=== PATIENT | female | born 1980 | race Caucasian/White ===

== ENCOUNTER 2020-09-20 14:33 | Emergency (ER) | payer OTHER ==
[~2020-09-20] VITALS: Ht 167.6 cm; Wt 108.9 kg
[2020-09-20] MEDS ORDERED: GEODON40 MG PO (15:25)
[2020-09-20] MEDS ORDERED: OLANZAPINE15 MG PO (15:25)
[2020-09-21] MEDS ORDERED: GEODON40 MG PO (16:34)
[2020-09-21] MEDS ORDERED: BACTRIM DS TAB1 EACH PO (16:34)
[2020-09-21] MEDS ORDERED: OLANZAPINE15 MG PO (16:34)
== END 2020-09-21 17:35 | disposition home or self-care (01) ==
LOC: ED 14:33
DX: F29 Unspecified psychosis not due to a substance or known physiological condition (principal); F15.10 Other stimulant abuse, uncomplicated; F25.9 Schizoaffective disorder, unspecified; Z79.899 Other long term (current) drug therapy
CPT/HCPCS: 80053; 80176; 81001; 84443; 84703; 85025; 87077; 87088; 87186; 99284

== ENCOUNTER 2021-08-04 07:59 | Inpatient (IN) | payer OTHER ==
[~2021-08-04] VITALS: Ht 167.6 cm; Wt 101.9 kg
--- NOTE | ~2021-08-04 | EKG ---
[facility] [address], [place] [address] Draft EK completed, results pending confirmation PATIENT NAME: VASQUEZ MONTERO Electrocardiogram DATE OF : 78 PHYSICIAN: PRELIMINARY REPORT #: [id number] REPORT IS CONFIDENTIAL AND NOT TO BE RELEASED WITHOUT AUTHORIZATION
[~2021-08-04 07:59] MED LIST: BACTRIM DS TAB1 EACH PO; GEODON40 MG PO; OLANZAPINE15 MG PO
--- OUTSIDE RECORDS SUMMARY | 2021-08-04 08:02 | XMS ---
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 Kermit has no Care Guidelines for this patient. Js VISIT COUNT (12 MO.) 3 [place] TOTAL 3 NOTE: Visits indicate total known visits. ED/C VISIT TRACKING (12 MO.) 08/04/2021 07:59 [place] TYPE: Emergency COMPLAINT: - HYPOTHERMIA 01/22/2021 10:36 [place] TYPE: Emergency COMPLAINT: - RASH ON R ARM/HAND 2020 14:34 [place] TYPE: Emergency COMPLAINT: - MEDICAL CLEARANCE DIAGNOSES: - Other prison (current) drug therapy - Schizoaffective disorder, unspecified - Delusional disorders - Unspecified psychosis not due to a substance or known physiological condition - Other stimulant abuse, uncomplicated INPATIENT VISIT TRACKING (12 MO.) No inpatient visits to display in this time frame [email or web address]
--- NOTE | 2021-08-04 12:40 | NUR ---
BEDSIDE REPORT RECIEVED FROM RN MALIKA IN THE ED. PT TRANSPORTED TO CCU VIA STRETCHER ON GANG LEADER BY THIS RN. PT TRANSFERED FROM STRETCHER TO BED WITH THREE RN ASSIST.
--- NOTE | 2021-08-04 13:04 | NUR ---
ASSESSMENT COMPLETE. PT ALERT AND ORIENTED TO YEAR, LOCATION, AND SITUATION. STATES SHE DOES NOT REMEMBER BEING PICKED UP BY EMS. STATES SHE WAS ON A WALK AND "THE WIND TURBINES WHERE STOPPING HER AND PULLING AT HER CALFS. SO SHE COULDNT WALK ANYMORE." PT REPORTS REGULAR USE OF METH AND IS A DAILY SMOKER. LUNGS SOUND CLEAR AND DIM IN THE BASES. HEART RATE IN THE 70S IN SINUS RHYTHM. BLOOD PRESSURES WNL. CORE TMEP 0F 94.5 AT THIS TIME. PT CONTINUES TO SHIVER. COVERED IN WARM BLANKETS AT THIS TIME. WARMED LR INFUSING AT 75 MLS/HR. DISCUSSED PLAN OF CARE WITH PT. ALL QUESTIONS ANSWERED. PT GIVEN 300 MLS OF WATER, NO ISSUES WITH SWALLOWING NOTED. WRIST RESTRAINTS REMOVED. CALL LIGHT WITHIN REACH. THIS RN WILL CONTINUE TO MONITOR.
--- NOTE | 2021-08-04 13:55 | EKG ---
[facility] [address] [place], [place] [address] \T\ T wave abnormality, consider inferior ischemia Prolonged QT Abnormal ECG When compared with ECG of 04-AUG-2021 10:08, Confirmed by ANGELA STRIKCLAND DO ([id number]) on 08/04/2021 1:55:38 PM Electronically Signed By: ANGELA STRICKLAND DO 08/04/21 1355 PATIENT NAME: ADRIANNAGEOFFREYVASQUEZ Electrocardiogram DATE OF : 78 PHYSICIAN: ANGELA STRICKLAND DO REPORT #: [id number] REPORT IS CONFIDENTIAL AND NOT TO BE RELEASED WITHOUT AUTHORIZATION
--- NOTE | 2021-08-04 14:37 | NUR ---
PT DRINKING WATER AND EATING A SNAK. HEART RATE IN THE 80S. CORE TEMP NOW 96.0. COLOR IN EXTREMETIES IMPROVED. PT DENIES PAIN. [facility] WILL CONTINUE TO MONITOR.
--- NOTE | 2021-08-04 15:48 | NUR ---
ASSESSMENT COMPLETED. PT REMAINS ALERT AND ORIENTED, BUT IS HALLUCINATING. TALKING TO UNSEEN OTHERS IN THE ROOM. PT STATES SHE IS LIVES AT HOME WITH FAMILY. PT STATES, "THEY ARE ALL IN DANGER. I FIGHT THE DEMONS FOR THEIR SOULS EVERY NIGHT" BRUISING IS APPEARING ON NUCKLES, BILATERAL ARMS AND KNEES. SKIN NOW PINK. PT NO LONGER SHIVERING. CORE TEMP NOW 96.8. PT COMPLAINS OF GENERALIZED ACHING. ASSISTED PT WITH REPOSITIONING IN THE BED. CALL LIGHT WTHIN REACH. WILL CONTINUE TO MONITOR.
--- NOTE | 2021-08-04 16:18 | NUR ---
PT UP TO BSC. ONE PERSON ASSIST REQUIRED. DENIES DIZZINESS. PT HAD LARGE LIQUID STOOL. ASSISTED PT WITH PERICARE. PT NOW BACK IN BED. CALL LIGHT WITHIN REACH. WILL CONTINUE TO MONITOR.
--- NOTE | 2021-08-04 17:44 | NUR ---
PT ate 100 percent of dinner, now asleep. respirations even and unlabored. spo2 = 92% on room air. Occasionally wakes and begins speaking to unseen others. call light within reach, will continue to monitor
--- NOTE | 2021-08-04 20:00 | NUR ---
PATIENT REQUESTED SNACKS AND SODA. REPORTS HER THROAT IS SORE. SANDWICH BOX, YOGURT, APPLE SAUCE, AND SODA PROVIDED. PATIENT ATE 100% OF PROVIDED FOOD. DENIES ANY CONCERNS. APPEARS APPROPRIATE.
--- NOTE | 2021-08-04 20:35 | NUR ---
provided patient a sandwich box and yogurt. pt sitting up on edge of bed with table to eat at.
--- NOTE | 2021-08-04 21:03 | NUR ---
PATIENT PROVIDED WITH PM MEDS. VS STABLE. AZUL EMPTIED, 900MLS CLEAR YELLOW URINE. PATIENT IS APPROPRIATE, DROWSY. PATIENT PROVIDED WITH WARM BLANKET, LIGHTS DIMMED. IV FLUIDS PER ORDER, SITE WNL. CALL LIGHT IN REACH. PATIENT SNORING LOUDLY BEFORE RN LEAVES ROOM. BED ALARM ACTIVE.
--- NOTE | 2021-08-04 22:45 | NUR ---
patient provided with fresh ice water. she denies any concerns. sleeping osundly off and on. drowsy. vs stable. temp wnl. appears calm and appropriate.
--- NOTE | 2021-08-05 00:20 | NUR ---
PATIENT SITTING UP TO THE EDGE OF THE BED. PROVIDED WITH SOME WATER. PATIENT REPORTS HER TOUNGE IS SORE FROM "CLAMPING DOWN ON IT" WHEN SHE WAS SO COLD. PROVIDED WITH PRN TYLENOL. PATIENT ATE SOME MORE SNACKS AND STOOD AT THE EDGE OF THE BED FOR A MIN. APPEARS TIRED BUT CALM. VS STABLE. IV FLUIDS PER ORDER. PATIENT RETURNED TO BED AND QUICKLY FELL ASLEEP, SNORING LOUDLY.
--- NOTE | 2021-08-05 03:00 | NUR ---
patient appears to be sleeping soundly, snoring loudly. hr 60-70's, sinus. vega temp wnl. call light in reach.
--- NOTE | 2021-08-05 05:30 | NUR ---
PATIENT SLEEPING SOUNDLY, SNORING. AZUL EMPTIED. PATIENT WOKE WHILE RN IN ROOM. QUESTIONS IF SHE CAN HAVE A SHOWER TO WASH HER HAIR. OFFERED THE PATIENT TO WAKE UP A BIT AND I WOULD SET UP THE SHOWER THE PATIENT STATES "OKAY, MAYBE AFTER BREAKFAST" AND QUICKLY STARTS TO FALL ASLEEP. VS STABLE. CALL LIGHT IN REACH.
--- NOTE | 2021-08-05 07:23 | NUR ---
REPORT RECIEVED, CARE OF PT ASSUMED AT THIS TIME.
--- NOTE | 2021-08-05 07:28 | NUR ---
IN TO CHECK ON PT, SHE APPEARS TO BE SLEEPING. BREATHING EVEN AND UNLABORED. IV FLUIDS INFUSING. CALL LIGHT WITHIN REACH. WILL CONTINUE TO MONITOR.
--- NOTE | 2021-08-05 07:51 | NUR ---
ASSESSMENT COMPLETED. JORGE ALBERTO YOUNG AT THIS TIME. PT NOW SITTING UP AT SIDE OF BED TO EAT BREAKFAST. NO COMPLAINTS OF PAIN OR DISCOMFORT. ALERT AND ORIENTED x4. NO HALLUCINATIONS AT THIS TIME. AM MEDICATIONS ADMINISTERED. CALL LIGHT WITHIN REACH. WILL CONTINUE TO MONITOR.
--- NOTE | 2021-08-05 09:03 | NUR ---
DR HI IN ROOM TO ASSESS PATIENT AT THIS TIME.
[2021-08-05] MEDS ORDERED: HYDROXYZINE HCL25 MG PO (10:04)
[2021-08-05] MEDS ORDERED: NEURONTIN300 MG PO (10:04)
[2021-08-05] MEDS ORDERED: PROZAC20 MG PO (10:04)
[2021-08-05] MEDS ORDERED: MINIPRESS2 MG PO (10:05)
[2021-08-05] MEDS ORDERED: BACTRIM DS TAB1 EACH PO (10:05)
--- NOTE | 2021-08-05 10:28 | NUR ---
PTAMBULATED TO ROOM 126, TOOK SHOWER INDEPENDENTLLY. STEADY ON FEET. NOW BACK IN BED. MOTHER CALLED TO BRING PT CLEAN CLOTHES AND TAKE PT HOME. PT AND FAMILY UNDERSTAND PLAN TO DC. CALL LIGHT WITHIN REACH. WILL CONTINUE TO MONITOR.
--- NOTE | 2021-08-05 11:20 | NUR ---
OVER TO UNIT, PATIENT SLEEPING PRIOR TO DISCHARGE. DISCUSSED DISCHARGE WITH COSTA PEDRO, SHE FEELS THE PATIENT HAS NO NEEDS AT THIS TIME. PER DR. HI AND COSTA RN PATIENT IS NOT INTERESTED IN DISCUSSING SUBSTANCE ABUSE ISSUES AT THIS TIME. BEL INFORMATION LEFT FOR PATIENT AT DISCHARGE.
--- NOTE | 2021-08-05 14:04 | NUR ---
WAS UNABLE TO WAKE PT. MAYELA SKELTON FEELS PT WILL DC TODAY. WILL CHECK BACK
== END 2021-08-05 11:45 | disposition home or self-care (01) | DRG 93 ==
LOC: ED 07:59 → CCU 11:48
PROVIDERS: ADMIT Student in an Organized Health Care Education/Training Program; ATTEND Student in an Organized Health Care Education/Training Program
DX: G92.8 Other toxic encephalopathy (principal); Z20.822 Contact with and (suspected) exposure to COVID-19; T68.XXXA Hypothermia, initial encounter; F25.9 Schizoaffective disorder, unspecified; Z79.899 Other long term (current) drug therapy
CPT/HCPCS: 36415; 51702; 71045; 80048; 80053; 81001; 82310; 82553; 83735; 84703; 85007; 85025; 85610; 86140; 93005; 93010; 94799; 99285-25; A9270; C9803; G0480; J2060; J7030; J7121; U0003

== ENCOUNTER 2022-02-03 11:31 | Emergency (ER) | payer OTHER ==
[~2022-02-03] VITALS: Ht 167.6 cm; Wt 101.6 kg
[~2022-02-03 11:31] MED LIST changes: +HYDROXYZINE HCL25 MG PO; +MINIPRESS2 MG PO; +NEURONTIN300 MG PO; +PROZAC20 MG PO
--- OUTSIDE RECORDS SUMMARY | 2022-02-03 11:34 | XMS ---
PreManage Notification: VASQUEZ MONTERO Security Iv Rn Events No recent Security Events currently on file CRITERIA MET - [facility] CARE PROVIDERS There are no care providers on record at this time. Kermit has no Care Guidelines for this patient. Js VISIT COUNT (12 MO.) 2 [place] TOTAL 2 NOTE: Visits indicate total known visits. 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
== END 2022-02-06 11:29 | disposition home or self-care (01) ==
LOC: ED 11:31
DX: F23 Brief psychotic disorder (principal); F15.10 Other stimulant abuse, uncomplicated; Z79.899 Other long term (current) drug therapy; Z20.822 Contact with and (suspected) exposure to COVID-19
CPT/HCPCS: 36415; 80053; 81001; 84443; 84703; 85025; A9270; A9270-GY; C9803; G0480; J1200; J1630; J2060; U0003

== ENCOUNTER → 2022-10-04 | Emergency (ER) | payer OTHER ==
[~2022-10-04] VITALS: Ht 167.6 cm; Wt 101.6 kg
[2022-10-04 01:50] VITALS: BP 119/75
== END ==
LOC: ED 00:05
DX: F15.10 Other stimulant abuse, uncomplicated (principal)
CPT/HCPCS: 36415; 80053; 81001; 84443; 84703; 85025; G0480

== ENCOUNTER 2023-04-24 13:28 | Emergency (ER) | payer OTHER ==
[~2023-04-24] VITALS: Ht 162.6 cm; Wt 112.0 kg
[~2023-04-24 13:28] MED LIST changes: +BENZTROPINE MESY2 MG PO; +ZYPREXA10 MG PO
--- OUTSIDE RECORDS SUMMARY | 2023-04-24 13:31 | XMS ---
PreManage Notification: VASQUEZ MONTERO Security President [employer] [place] Events No recent Security Events currently on file CRITERIA MET - [facility] - 2 Visits in 30 Days CARE PROVIDERS -, [facility]- Dentist: [facility] PHONE: [phone] [facility] Current PHONE: Unknown Care Guidelines exist for the following facilities: [facility] ( 04/27/2019 ) Care History Behavioral 12/18/2017 [facility] Crisis team\T\nbsp;is attempting to provide additional outreach efforts to engage Vasquez during regular business hours with the use of crisis peer support, crisis case management, crisis RN, home health clinician and Vasquez\T\ #39;s therapist, Yelena. Vasquez does not want to take medications or engage in any services, although, the crisis team will continue to make efforts in an attempt to prevent ER and CELESTE contact. In the event that Vasquez goes to the ER and is not a danger to self or others, crisis team will continue efforts during regular business hours to build rapport and hopefully engage her. She stays with her son, Vimal, in [place] ([phone]) and parents in [place], [facility] and [place] ([phone]). Both parties have verified there are no firearms at their residences. If she is not a danger to self or others but displaying symptoms of psychosis or mental illness, crisis team is flagged through this system, but medical staff can call the daytime crisis phone [phone] and leave a VM that will be checked during regular business hours for follow up with Vasquez, if needed. Medical/Surgical 09/04/2017 [facility] Vasquez is generally cooperative and pleasant. She has delusions and hallucinations the majority of the time. She is un-medicated at this time. 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 Calming techniques, and grounding exercises could be beneficial interventions when she is delusional. Her primary mental health therapist Ynes FLETCHER. Her direct line is [phone]. The [facility] 24 hour crisis line during daytime hours is [phone], and nighttime hours is [phone]. E.D. VISIT COUNT (12 MO.) 4 [place] ([facility]) TOTAL 7 NOTE: Visits indicate total known visits. ED/UCC VISIT TRACKING (12 MO.) 04/24/2023 13:28 [place] TYPE: Emergency COMPLAINT: - DENTAL/EAR PAIN, CHEST PAIN 04/23/2023 16:26 [place] TYPE: Emergency COMPLAINT: - DENTAL PAIN 12/26/2022 16:47 [place] TYPE: Emergency COMPLAINT: - MEDICAL CLEARANCE DIAGNOSES: - Disorientation, unspecified - Other stimulant abuse, uncomplicated - Schizoaffective disorder, unspecified - Schizophrenia, unspecified 11/28/2022 01:46 [place] [facility] TYPE: Emergency DIAGNOSES: - Acute upper respiratory infection, unspecified - Sore Throat - Throat complaint 11/02/2022 15:12 [place] [facility] TYPE: Emergency DIAGNOSES: - Acute candidiasis of vulva and vagina - Infection - Urinary Complaint 10/13/2022 18:42 [place] [facility] TYPE: Emergency DIAGNOSES: - Disorganized schizophrenia - Major depressive disorder, single episode, in partial remission - Other stimulant abuse, uncomplicated - Mental Health Eval - Mental Health Evaluation - Patient's other noncompliance with medication regimen for other reason [facility] [place] [facility] COMPLAINT: - ALTERED LOC DIAGNOSES: - Anxiety disorder, unspecified - Other stimulant abuse, uncomplicated INPATIENT VISIT TRACKING (12 MO.) 10/14/2022 19:45 [facility] TYPE: Behavioral Health DIAGNOSES: - Unspecified psychosis not due to a substance or known physiological condition - Unspecified Psychosis [email or web address]
[2023-04-24] MEDS ORDERED: HYDROXYZINE HCL25 MG PO (14:33)
[2023-04-24] MEDS ORDERED: FLUOXETINE HCL20 MG PO (14:33)
[2023-04-24 15:02] VITALS: BP 118/84
--- NOTE | 2023-04-24 23:08 | EKG ---
[facility] [address] [facility] [address] [place] [address] Signed Normal sinus rhythm Normal ECG When compared with ECG of 04-AUG-2021 10:08, Sinus rhythm has replaced Atrial fibrillation Vent. rate has increased BY [address] no longer elevated in Lateral leads T wave amplitude has decreased in Lateral leads QT has shortened Confirmed by Mehnaz Serrano MD () on 04/24/2023 11:08:24 PM Electronically Signed By: MEHNAZ SERRANO MD 04/24/23 2308 PATIENT NAME: VASQUEZ MONTERO Electrocardiogram DATE OF : 78 PHYSICIAN: MEHNAZ SERRANO MD REPORT #: [id number] REPORT IS CONFIDENTIAL AND NOT TO BE RELEASED WITHOUT AUTHORIZATION
== END 2023-04-24 15:02 | disposition home or self-care (01) ==
LOC: ED 13:28
DX: H92.03 Otalgia, bilateral (principal)
CPT/HCPCS: 93005; 93010; 99283-25

== ENCOUNTER 2025-02-14 14:02 | Emergency (ER) | payer OTHER ==
[~2025-02-14] VITALS: Ht 162.6 cm; Wt 118.0 kg
--- OUTSIDE RECORDS SUMMARY | ~2025-02-14 | XMS | Continuity of Care Document ---
Demographics + + + | Address | [address] | | | [place] [address] | + + + | Preferred Language | Unknown | + + + | Marital Status | Unknown | + + + | Oriental Orthodox Affiliation | Unknown | + + + | Race | White | + + + | Ethnic Group | Not or | + + + Author + + + | Author | [facility] | + + + | Organization | [facility] | + + + | Address | [address] | | | [place] [address] | + + + | Phone | | + + + Care Team Providers + + + + | Care Social Economist Name | Role | Phone | + + + + Unavailable | Unavailable | + + + + Unavailable | Unavailable | + + + + Allergies No information. Encounters No information. Functional Status No information. [...] classified | | + + + + Procedures No information. Results/Labs No information. Social History +--------+ + + | date | description | facility | +--------+ + + Vital Signs No information."
[~2025-02-14 14:02] MED LIST changes: +CEPHALEXIN500 M1 PO; +FLUOXETINE HCL20 MG PO
[2025-02-14] MEDS ORDERED: OLANZapine 10 MG TABDIS PO ONE (14:45)
[2025-02-14 14:50] LABS: BASOPHILS 0.8 % (0.1-1.2); EOSINOPHILS 2.6 % (0.7-5.8); LYMPHOCYTES 25.1 % (19.3-51.7); MCH 28.1 PG (25.6-32.2); MCHC 32.5 g/dL (32.2-35.5); MCV 86.5 fL (79.4-94.8); MONOCYTES 7.0 % (4.7-12.5); NEUTROPHILS 64.1 % (34.0-71.1); RBC 3.84 M/uL (3.93-5.22)
[2025-02-14 15:15] LABS: ALCOHOL, MEDICAL <3 ng/dL (<3); ALT (SGPT) 53 U/L (14-59); AST (SGOT) 27 U/L (15-37); GLOMERULAR FILTRATION RATE,EST 98 mL/min (>60); PROTEIN, TOTAL 6.5 g/dL (6.4-8.2); TSH, 3RD GENERATION 0.993 uIU/mL (0.358-3.740); UREA NITROGEN 8 mg/dL (7-18)
[2025-02-14] MEDS ORDERED: POTASSIUM CHLORIDE 10 MEQ TABCR PO ONE (16:00)
[2025-02-14 16:03] VITALS: BP 118/68
== END 2025-02-14 16:14 | disposition home or self-care (01) ==
LOC: ED 14:02
PROVIDERS: Emergency Medicine
DX: F20.9 Schizophrenia, unspecified (principal); F29 Unspecified psychosis not due to a substance or known physiological condition
CPT/HCPCS: 36415; 80053; 80307; 84443; 84703; 85025; 99284; A9270; G0480

== ENCOUNTER 2025-03-04 23:07 | Emergency (ER) | payer OTHER ==
[~2025-03-04] VITALS: Ht 162.6 cm; Wt 115.0 kg
--- OUTSIDE RECORDS SUMMARY | ~2025-03-04 | XMS | Continuity of Care Document ---
Demographics + + + | Address | [address] [address] | | | [place] [address] | + + + | Preferred Language | Unknown | + + + | Marital Status | | + + + | Restorationist Affiliation | Unknown | + + + | Race | White | + + + | Ethnic Group | Not or | + + + Author + + + | Author | [facility] | + + + | Organization | [facility] | + + + | Address | [address] | | | [place] [address] | + + + | Phone | | + + + Care Team Providers + + + + | Care Fish Egg Packer Name | Role | Phone | + [...] [facility] | | | | [facility] | + + + + | [...] 6.5 | (missing) | (missing) | | [facility] | 14:45:07 | [facility] | | | [...]
[2025-03-05 00:29] LABS: BLOOD/HGB, URINE NEGATIVE (Negative); KETONE, URINE NEGATIVE (Negative); LEUK ESTERASE, URINE NEGATIVE (negative); NITRITE, URINE NEGATIVE (negative)
[2025-03-05 00:36] LABS: BACTERIA, URINE RARE /hpf (negative); CASTS, URINE NONE SEEN \\lpf; CRYSTALS, URINE NONE SEEN (0-1+); EPITHELIAL CELLS, URINE SQUAMOUS 1+ /lpf (0-1+); REFLEX CULTURE, URINE No (No)
[2025-03-05 00:44] LABS: AMPHETAMINES, URINE NEGATIVE (NEGATIVE); BARBITURATES, URINE NEGATIVE (NEGATIVE); BENZODIAZEPINE, URINE NEGATIVE (NEGATIVE); CANNABINOID, URINE POSITIVE (NEGATIVE); COCAINE, URINE NEGATIVE (NEGATIVE); ECSTASY, URINE NEGATIVE (NEGATIVE); FENTANYL, URINE NEGATIVE (NEGATIVE); METHADONE, URINE NEGATIVE (NEGATIVE); OPIATES, URINE NEGATIVE (NEGATIVE); OXYCODONE, URINE NEGATIVE (NEGATIVE); PHENCYCLIDINE, URINE NEGATIVE (NEGATIVE)
[2025-03-05 01:30] VITALS: BP 134/85
--- NOTE | 2025-03-06 13:13 | EKG ---
[facility] [address] [facility] [place], [place] [address] Signed Normal sinus rhythm Normal ECG When compared with ECG of 16-MAY-2023 14:36, No significant change was found Confirmed by Rip Olivarez DO ([id number]) on 03/06/2025 1:13:27 PM Electronically Signed By: RIP OLIVAREZ DO 03/06/25 1313 PATIENT NAME: NELSONALVERTOVASQUEZ Electrocardiogram DATE OF : 78 PHYSICIAN: RIP OLIVAREZ DO REPORT #: [id number] REPORT IS CONFIDENTIAL AND NOT TO BE RELEASED WITHOUT AUTHORIZATION
[2025-03-06] MEDS ORDERED: OLANZAPINE5 MG PO (18:40)
[2025-03-06] MEDS ORDERED: OLANZAPINE10 MG PO (18:40)
[2025-03-06] MEDS ORDERED: HYDROXYZINE HCL50 MG PO (18:40)
[2025-03-06] MEDS ORDERED: LURASIDONE HCL80 MG PO (18:41)
[2025-03-06] MEDS ORDERED: TOPIRAMATE25 MG PO (18:41)
[2025-03-06] MEDS ORDERED: MELATONIN3 MG PO (18:42)
== END 2025-03-05 01:45 | disposition home or self-care (01) ==
LOC: ED 23:07
PROVIDERS: Internal Medicine
DX: F29 Unspecified psychosis not due to a substance or known physiological condition (principal); S90.812A Abrasion, left foot, initial encounter; X58.XXXA Exposure to other specified factors, initial encounter
CPT/HCPCS: 36415; 73630; 80307; 81001; 84484; 93005; 93010; 99284

== ENCOUNTER 2025-03-06 15:57 | Emergency (ER) | payer OTHER ==
[~2025-03-06] VITALS: Ht 162.6 cm; Wt 115.0 kg
[2025-03-06 16:26] LABS: BLOOD/HGB, URINE TRACE-I (Negative); KETONE, URINE SMALL (Negative); LEUK ESTERASE, URINE TRACE (negative); NITRITE, URINE POSITIVE (negative)
[2025-03-06] MEDS ORDERED: OLANZapine 10 MG VIAL IM ONE (16:30)
[2025-03-06 16:33] LABS: EPITHELIAL CELLS, URINE SQUAMOUS 2+ /lpf (0-1+)
[2025-03-06 16:34] LABS: BACTERIA, URINE 4+ /hpf (negative); CASTS, URINE HYALINE 1+ \\lpf; CRYSTALS, URINE NONE SEEN (0-1+); REFLEX CULTURE, URINE No (No)
[2025-03-06 16:40] LABS: AMPHETAMINES, URINE POSITIVE (NEGATIVE); BARBITURATES, URINE NEGATIVE (NEGATIVE); BENZODIAZEPINE, URINE NEGATIVE (NEGATIVE); CANNABINOID, URINE POSITIVE (NEGATIVE); COCAINE, URINE NEGATIVE (NEGATIVE); ECSTASY, URINE POSITIVE (NEGATIVE); FENTANYL, URINE NEGATIVE (NEGATIVE); METHADONE, URINE NEGATIVE (NEGATIVE); OPIATES, URINE NEGATIVE (NEGATIVE); OXYCODONE, URINE NEGATIVE (NEGATIVE); PHENCYCLIDINE, URINE NEGATIVE (NEGATIVE)
--- OUTSIDE RECORDS SUMMARY | 2025-03-06 16:40 | XMS | Continuity of Care Document ---
Demographics + + + | Address | [address] [address] | | | [place] [address] | + + + | Preferred Language | Unknown | + + + | Marital Status | | + + + | Yazidi Affiliation | Unknown | + + + | Race | White | + + + | Ethnic Group | Not or | + + + Author + + + | Author | [facility] | + + + | Organization | [facility] | + + + | Address | [address] | | | [place] [address] | + + + | Phone | | + + + Care Team Providers + + + + | Care Chute Operator Name | Role | Phone | + + + + Unavailable | Unavailable | + + + + Unavailable | Unavailable | + + + + Unavailable | Unavailable | + + + + Allergies and Intolerances + + + + + + | date | description | facility | reaction | severity | + + + + + + | 2025-02-14 | UNK | [facility] - | (no reaction) | (no severity) | | 00:00 | | [facility] | | | + + + + + + Encounters No information. Functional Status No information. Immunizations No information. Medications No information. Problems + + + + | date | description | facility | + + + + | 2024-12-10 13:39:45 | Poisoning by 4-aminophenol | [facility] | | | derivatives, accidental | | | | (unintentional), initial | | | | encounter | | + + + + | 2024-12-12 13:28:21 | Poisoning by 4-aminophenol | [facility] | | | derivatives, accidental | | | | (unintentional), initial | | | | encounter | | + + + + | 2024-12-16 18:25:06 | Shortness of breath | [facility] | + + + + | 2024-12-20 15:38:49 | Paranoid schizophrenia | [facility] | | | (CMS/HCC V24, CMS/HCC V28) | | + + + + | 2024-12-20 15:38:49 | Other chronic pain | [facility] | + + + + | 2024-12-20 15:38:49 | Mild intermittent asthma, | [facility] | | | uncomplicated | | + + + + | 2024-12-20 15:38:49 | Low back pain, unspecified | [facility] | | | | | + + + + | 2024-12-20 15:38:49 | Pain in left foot | [facility] | + + + + | 2024-12-20 15:38:49 | Abnormal levels of other | [facility] | | | serum enzymes | | + + + + | 2024-12-20 15:38:49 | Encounter for general | [facility] | | | adult medical examination | | | | without abnormal findings | | + + + + | 2024-12-20 15:38:49 | Encounter for screening | [facility] | | | for human immunodeficiency | | | | virus (HIV) | | + + + + | 2024-12-20 15:38:49 | Encounter for screening | [facility] | | | for other viral diseases | | + + + + | 2024-12-20 15:38:49 | Encounter for screening | [facility] | | | for lipoid disorders | | + + + + | 2024-12-20 15:38:49 | Other specified personal | [facility] | | | risk factors, not elsewhere | | | | classified | | + + + + | 2025-02-14 00:00 | Psychosis | [facility] | | [facility] | + + + + | 2025-02-16 13:10:32 | Encounter for screening, | [facility] | | | unspecified | | + + + + Procedures No information. Results/Labs +--------+--------+ +---------+--------+---------+ | test | date | facility | value | unit | notes | +--------+--------+ +---------+--------+---------+ + + | Result panel 1 | + + + + + +--------+ + + | WBC # Bld | 2025-02-14 | | 8.00 | (missing) | (missing) | | Auto | 14:45:07 | [facility] | | | | + + + +--------+ + + + + | Result panel 2 | + + + + + +--------+ + + | Lymphocytes | 2025-02-14 | | 25.1 | (missing) | (missing) | | NFr Bld | 14:45:07 | [facility] | | | | | Auto | [facility] | | | | + + + +--------+ + + + + | Result panel 3 | + + + + + +-------+ + + | Monocytes | 2025-02-14 | | 7.0 | (missing) | (missing) | | NFr Bld Auto | 14:45:07 | [facility] | | | | + + + +-------+ + + + + | Result panel 4 | + + + + + +-------+ + + | Eosinophil | 2025-02-14 | | 2.6 | (missing) | (missing) | | NFr Bld Auto | 14:45:07 | [facility] | | | | + + + +-------+ + + + + | Result panel 5 | + + + + + +-------+ + + | Basophils | 2025-02-14 | | 0.8 | (missing) | (missing) | | NFr Bld Auto | 14:45:07 | [facility] | | | | + + + +-------+ + + + + | Result panel 6 | + + + + + +------+---------+ + | Glucose | 2025-02-14 | | 96 | mg/dL | (missing) | | SerPl-mCnc | 14:45:07 | [facility] | | | | + + + +------+---------+ + + + | Result panel 7 | + + + + + +-----+---------+ + | BUN | 2025-02-14 | | 8 | mg/dL | (missing) | | Tami-Yovani | 14:45:07 | [facility] | | | | + + + +-----+---------+ + + + | Result panel 8 | + + + + + +--------+---------+ + | Creat | 2025-02-14 | | 0.76 | mg/dL | (missing) | | SerPl-mCnc | 14:45:07 | [facility] | | | | + + + +--------+---------+ + + + | Result panel 9 | + + + + + +------+ + + | eGFRcr | 2025-02-14 | | 98 | (missing) | (missing) | | SerPlBld | 14:45:07 | [facility] | | | | | CKD-EPI 2020 | [facility] | | | | + + + +------+ + + + + | Result panel 10 | + + + + + +---------+ + + | BUN/Creat | 2025-02-14 | | 10.52 | (missing) | (missing) | | SerPl | 14:45:07 | [facility] | | | | + + + +---------+ + + + + | Result panel 11 | + + + + + +-------+ + + | Sodium | 2025-02-14 | | 140 | (missing) | (missing) | | SerPl-sCnc | 14:45:07 | [facility] | | | | + + + +-------+ + + + + | Result panel 12 | + + + + + +--------+ + + | RBC # Bld | 2025-02-14 | | 3.84 | (missing) | (missing) | | Auto | 14:45:07 | [facility] | | | | + + + +--------+ + + + + | Result panel 13 | + + + + + +-------+ + + | Potassium | 2025-02-14 | | 3.1 | (missing) | (missing) | | SerPl-sCnc | 14:45:07 | [facility] | | | | + + + +-------+ + + + + | Result panel 14 | + + + + + +-------+ + + | Chloride | 2025-02-14 | | 108 | (missing) | (missing) | | SerPl-sCnc | 14:45:07 | [facility] | | | | + + + +-------+ + + + + | Result panel 15 | + + + + + +------+ + + | CO2 | 2025-02-14 | | 25 | (missing) | (missing) | | SerPl-sCnc | 14:45:07 | [facility] | | | | + + + +------+ + + + + | Result panel 16 | + + + + + +--------+ + + | Anion Gap | 2025-02-14 | | 10.1 | (missing) | (missing) | | SerPl | 14:45:07 | [facility] | | | | | Calculated.4 | [facility]nc | | [facility] | | | | + + + +--------+ + + + + | Result panel 17 | + + + + + +-------+---------+ + | Calcium | 2025-02-14 | | 9.2 | mg/dL | (missing) | | SerPl-mCkasie | 14:45:07 | [facility] | | | | + + + +-------+---------+ + + + | Result panel 18 | + + + + + +-------+ + + | Prot | 2025-02-14 | | 6.5 | (missing) | (missing) | | [facility] | 14:45:07 | [facility] | | | | + + + +-------+ + + + + | Result panel 19 | + + + + + +-------+ + + | Albumin | 2025-02-14 | | 2.8 | (missing) | (missing) | | SerPl-Yovani | 14:45:07 | [facility] | | | | + + + +-------+ + + + + | Result panel 20 | + + + + + +-------+ + + | Globulin | 2025-02-14 | | 3.7 | (missing) | (missing) | | Ser-Yovani | 14:45:07 | [facility] | | | | + + + +-------+ + + + + | Result panel 21 | + + + + + +--------+ + + | | 2025-02-14 | | 0.76 | (missing) | (missing) | | Albumin/Glob | 14:45:07 | [facility] | | | | | SerPl | [facility] | | | | + + + +--------+ + + + + | Result panel 22 | + + + + + +-------+---------+ + | Bilirub | 2025-02-14 | | 0.4 | mg/dL | (missing) | | SerPl-mCnc | 14:45:07 | [facility] | | | | + + + +-------+---------+ + + + | Result panel 23 | + + + + + +--------+ + + | Hgb | 2025-02-14 | | 10.8 | (missing) | (missing) | | Sudha-Yovani | 14:45:07 | [facility] | | | | + + + +--------+ + + + + | Result panel 24 | + + + + + +------+ + + | AST | 2025-02-14 | | 27 | (missing) | (missing) | | SerPl-cCnc | 14:45:07 | [facility] | | | | + + + +------+ + + + + | Result panel 25 | + + + + + +------+ + + | ALT | 2025-02-14 | | 53 | (missing) | (missing) | | SerPl-cCnc | 14:45:07 | [facility] | | | | + + + +------+ + + + + | Result panel 26 | + + + + + +------+ + + | ALP | 2025-02-14 | | 81 | (missing) | (missing) | | SerPl-cCnc | 14:45:07 | [facility] | | | | + + + +------+ + + + + | Result panel 27 | + + + + + +---------+ + + | TSH SerPl | 2025-02-14 | | 0.993 | (missing) | (missing) | | DL<=0.005 | 14:45:07 | [facility] | | | | | mIU/L-aCnc [facility] | | | | + + + +---------+ + + + + | Result panel 28 | + + + + + + + + + | HCG SerPl | 2025-02-14 | | NEGATIVE | (missing) | (missing) | | Ql | 14:45:07 | [facility] | | | | + + + + + + + + + | Result panel 29 | + + + + + +-----+ + + | APAP | 2025-02-14 | | 0 | (missing) | (missing) | | SerPl-mCkasie | 14:45:07 | [facility] | | | | + + + +-----+ + + + + | Result panel 30 | + + + + + +------+ + + | APAP Dose | 2025-02-14 | | // | (missing) | (missing) | | | 14:45:07 | [facility] | | | | + + + +------+ + + + + | Result panel 31 | + + + + + +-------+---------+ + | Salicylates | 2025-02-14 | | 3.1 | mg/dL | (missing) | | SerPl-mCnc | 14:45:07 | [facility] | | | | + + + +-------+---------+ + + + | Result panel 32 | + + + + + +------+ + + | Salicylates | 2025-02-14 | | // | (missing) | (missing) | | Dose | 14:45:07 | [facility] | | | | + + + +------+ + + + + | Result panel 33 | + + + + + +------+ + + | Ethanol | 2025-02-14 | | <3 | (missing) | (missing) | | SerPl-sCnc | 14:45:07 | [facility] | | | | + + + +------+ + + + + | Result panel 34 | + + + + + +--------+ + + | Hct VFr.DF | 2025-02-14 | | 33.2 | (missing) | (missing) | | Bld Auto | 14:45:07 | [facility] | | | | + + + +--------+ + + + + | Result panel 35 | + + + + + +--------+ + + | RBC Auto | 2025-02-14 | | 86.5 | (missing) | (missing) | | | 14:45:07 | [facility] | | | | + + + +--------+ + + + + | Result panel 36 | + + + + + +--------+ + + | MCH RBC Qn | 2025-02-14 | | 28.1 | (missing) | (missing) | | Auto | 14:45:07 | [facility] | | | | + + + +--------+ + + + + | Result panel 37 | + + + + + +--------+ + + | MCHC RBC | 2025-02-14 | | 32.5 | (missing) | (missing) | | Auto-EntMCnc | 14:45:07 | [facility] | | | | + + + +--------+ + + + + | Result panel 38 | + + + + + +-------+ + + | Platelet # | 2025-02-14 | | 394 | (missing) | (missing) | | Bld Auto | 14:45:07 | [facility] | | | | + + + +-------+ + + + + | Result panel 39 | + + + + + +--------+ + + | Neutrophils | 2025-02-14 | | 64.1 | (missing) | (missing) | | NFr Bld | 14:45:07 | [facility] | | | | | Auto | [facility] | | | | + + + +--------+ + + Social History +--------+ + + | date | description | facility | +--------+ + + Vital Signs + + + +---------+ | date | measurement | value | units | + + + +---------+ | 2025-02-14 00:00 | BMI | 44.7 | kg/m2 | + + + +---------+ | 2025-02-14 00:00 | BP_diastolic | 68 | mmHg | + + + +---------+ | 2025-02-14 00:00 | BP_systolic | 118 | mmHg | + + + +---------+ | 2025-02-14 00:00 | heart_rate | 76 | /min | + + + +---------+ | 2025-02-14 00:00 | height_metric | 162.56 | cm | + + + +---------+ | 2025-02-14 00:00 | height_standard | 64 | in | + + + +---------+ | 2025-02-14 00:00 | o2_saturation | 96 | % | + + + +---------+ | 2025-02-14 00:00 | respiration_rate | 16 | /min | + + + +---------+ | 2025-02-14 00:00 | | 98.4 | F | | | temperature_standar | | | | | d | | | + + + +---------+ | 2025-02-14 00:00 | weight_metric | 117.999 | kg | + + + +---------+ | 2025-02-14 00:00 | weight_standard | 260.143 | lb | + + + +---------+"
[2025-03-06 17:40] LABS: BASOPHILS 0.4 % (0.1-1.2); EOSINOPHILS 0.8 % (0.7-5.8); LYMPHOCYTES 21.4 % (19.3-51.7); MCH 28.4 PG (25.6-32.2); MCHC 31.4 g/dL (32.2-35.5); MCV 90.5 fL (79.4-94.8); MONOCYTES 6.5 % (4.7-12.5); NEUTROPHILS 70.6 % (34.0-71.1); RBC 4.09 M/uL (3.93-5.22)
[2025-03-06 18:07] LABS: ALT (SGPT) 56 U/L (14-59); AST (SGOT) 40 U/L (15-37); GLOMERULAR FILTRATION RATE,EST 67 mL/min (>60); PROTEIN, TOTAL 7.1 g/dL (6.4-8.2); TSH, 3RD GENERATION 2.440 uIU/mL (0.358-3.740); UREA NITROGEN 9 mg/dL (7-18)
[2025-03-06] MEDS ORDERED: HYDROXYZINE HCL50 MG PO (18:40)
[2025-03-06] MEDS ORDERED: OLANZAPINE5 MG PO (18:40)
[2025-03-06] MEDS ORDERED: OLANZAPINE10 MG PO (18:40)
[2025-03-06] MEDS ORDERED: TOPIRAMATE25 MG PO (18:41)
[2025-03-06] MEDS ORDERED: LURASIDONE HCL80 MG PO (18:41)
[2025-03-06] MEDS ORDERED: MELATONIN3 MG PO (18:42)
[2025-03-06] MEDS ORDERED: TRAZODONE HCL 100 MG TAB PO ONE (23:15)
[2025-03-06] MEDS ORDERED: LORazepam 0.5 MG TAB PO ONE (23:15)
[2025-03-06] MEDS ORDERED: NITROFURANTOIN MONOHYD MACROCR 100 MG CAP PO ONE (23:45)
[2025-03-07] MEDS ORDERED: NITROFURANTOIN MONOHYD MACROCR 100 MG CAP PO SCH (08:00)
[2025-03-07] MEDS ORDERED: LORazepam 0.5 MG TAB PO SCH (09:00)
[2025-03-07] MEDS ORDERED: NICOTINE POLACRILEX 4 MG LOZENGE BUCCAL PRN (09:30)
[2025-03-07] MEDS ORDERED: TRAZODONE HCL 100 MG TAB PO SCH (21:45)
[2025-03-08] MEDS ORDERED: OLANZapine 10 MG TAB PO SCH (09:00)
[2025-03-08 11:30] VITALS: BP 124/68
[2025-03-08] MEDS ORDERED: TRAZODONE HCL 100 MG TAB PO SCH (21:00)
[2025-03-08] MEDS ORDERED: TRAZODONE HCL 50 MG TAB PO SCH (21:00)
== END 2025-03-08 11:30 ==
LOC: ED 15:57
PROVIDERS: Emergency Medicine
DX: F20.9 Schizophrenia, unspecified (principal); N39.0 Urinary tract infection, site not specified; Z79.899 Other long term (current) drug therapy
CPT/HCPCS: 36415; 80053; 80307; 81001; 84443; 85025; 87077; 87088; 87186; 96372; 99285; A9270; G0480

== ENCOUNTER 2025-04-28 03:48 | Emergency (ER) | payer OTHER ==
[~2025-04-28] VITALS: Ht 162.6 cm; Wt 124.0 kg
--- OUTSIDE RECORDS SUMMARY | ~2025-04-28 | XMS | Continuity of Care Document ---
Demographics + + + | Address | [address] [address] | | | [place] [address] | + + + | Preferred Language | Unknown | + + + | Marital Status | | + + + | Jain Affiliation | Unknown | + + + | Race | White | + + + | Ethnic Group | Not or | + + + Author + + + | Author | [facility] | + + + | Organization | [facility] | + + + | Address | [address] | | | [place] [address] | + + + | Phone | | + + + Care Team Providers + + + + | Care Excavating Contractor Name | Role | Phone | + [...] facility | + + + + | 2025-02-14 00:00 | Psychosis | [facility] | | | | [facility] | + + + + | 2025-02-16 [...] 140 | (missing) | (missing) | | SerPl-sCn | 14:45:07 | [facility] | | | [...] 9.2 | mg/dL | (missing) | | SerPl-mCnc [...] 6.5 | (missing) | (missing) | | Tami-kasie | 14:45:07 | [facility] | | | [...] 2.8 | (missing) | (missing) | | SerPl-mCnc | 14:45:07 [...] 3.7 | (missing) | (missing) | | Ser-mCnc | 14:45:07 | [facility] | | | [...] 10.8 | (missing) | (missing) | | Bld-mCnc | 14:45:07 | [facility] | | | [...] | [facility] | | | | | [facility] | [facility] | | | [...] 0 | (missing) | (missing) | | SerPl-mCnc | 14:45:07 [...] | (missing) | | | 14:45:07 | [facility] | | | | | | - | | | | | | | [facility] | | | | + + + +------+ + + + + | Result panel 31 | + + + + + +-------+---------+ + | Salicylates | 2025-02-14 | | 3.1 | mg/dL | (missing) | | Tami-Yovani [...]
[~2025-04-28 03:48] MED LIST changes: +HYDROXYZINE HCL50 MG PO; +LURASIDONE HCL80 MG PO; +MELATONIN3 MG PO; +OLANZAPINE10 MG PO; +OLANZAPINE5 MG PO; +TOPIRAMATE25 MG PO
[2025-04-28 04:00] LABS: BASOPHILS 0.6 % (0.1-1.2); EOSINOPHILS 3.0 % (0.7-5.8); LYMPHOCYTES 22.3 % (19.3-51.7); MCH 28.9 PG (25.6-32.2); MCHC 32.4 g/dL (32.2-35.5); MCV 89.3 fL (79.4-94.8); MONOCYTES 6.3 % (4.7-12.5); NEUTROPHILS 67.5 % (34.0-71.1); RBC 3.91 M/uL (3.93-5.22)
[2025-04-28] MEDS ORDERED: ASPIRIN 81 MG CHEW PO ONE (04:00)
[2025-04-28 04:10] LABS: INR 1.03 (0.80-1.30); PROTIME 12.8 Sec (11.2-14.2)
[2025-04-28 04:22] LABS: ALT (SGPT) 40.0 U/L (14-59); AST (SGOT) 16.0 U/L (15-37); GLOMERULAR FILTRATION RATE,EST 77.0 mL/min (>60); PROTEIN, TOTAL 7.4 g/dL (6.4-8.2); UREA NITROGEN 6.0 mg/dL (7-18)
[2025-04-28] MEDS ORDERED: CYCLOBENZAPRINE10 MG PO (04:52)
[2025-04-28 05:59] VITALS: BP 91/66
--- NOTE | 2025-04-29 21:12 | EKG ---
[facility] [address] [facility] [place] [address] Signed Normal sinus rhythm Normal ECG When compared with ECG of 05-MAR-2025 00:24, No significant change was found Confirmed by Mehnaz Serrano MD () on 04/29/2025 9:12:26 PM Electronically Signed By: MEHNAZ SERRANO MD 04/29/252111 PATIENT NAME: ADRIANNAGEOFFREYVASQUEZ Electrocardiogram DATE OF : 78 PHYSICIAN: MEHNAZ SERRANO MD REPORT #: [id number] REPORT IS CONFIDENTIAL AND NOT TO BE RELEASED WITHOUT AUTHORIZATION
== END 2025-04-28 06:00 | disposition home or self-care (01) ==
LOC: ED 03:48
PROVIDERS: Family Medicine
DX: R07.89 Other chest pain (principal); F43.10 Post-traumatic stress disorder, unspecified; Z79.899 Other long term (current) drug therapy
CPT/HCPCS: 36415; 71045; 80053; 83735; 83880; 84484; 85025; 85610; 93005; 93010; 99285-25

== ENCOUNTER 2025-05-05 06:50 | Emergency (ER) | payer OTHER ==
[~2025-05-05] VITALS: Ht 162.6 cm; Wt 122.8 kg
--- OUTSIDE RECORDS SUMMARY | ~2025-05-05 | XMS | Continuity of Care Document ---
Demographics + + + | Address | [address] [address] | | | [place] [address] | + + + | Preferred Language | Unknown | + + + | Marital Status | | + + + | Mormonism Affiliation | Unknown | + + + | Race | White | + + + | Ethnic Group | Not or | + + + Author + + + | Author | [facility] | + + + | Organization | [facility] | + + + | Address | [address] | | | [place] [address] | + + + | Phone | | + + + Care Team Providers + + + + | Care Seasonal Tax Preparer Name | Role | Phone | + [...] [facility] | | | | [facility] | + + + + | [...] | [facility] | | | | | [facility] | | - [facility] | | | [...]
[~2025-05-05 06:50] MED LIST changes: +CYCLOBENZAPRINE10 MG PO
[2025-05-05 07:02] LABS: BASOPHILS 0.6 % (0.1-1.2); EOSINOPHILS 2.7 % (0.7-5.8); LYMPHOCYTES 25.5 % (19.3-51.7); MCH 28.5 PG (25.6-32.2); MCHC 32.0 g/dL (32.2-35.5); MCV 89.0 fL (79.4-94.8); MONOCYTES 5.8 % (4.7-12.5); NEUTROPHILS 65.1 % (34.0-71.1); RBC 4.46 M/uL (3.93-5.22)
[2025-05-05 07:13] LABS: INR 1.02 (0.80-1.30); PROTIME 13.0 Sec (11.2-14.2)
[2025-05-05 07:26] LABS: ALT (SGPT) 42.0 U/L (14-59); AST (SGOT) 28.0 U/L (15-37); GLOMERULAR FILTRATION RATE,EST 93.0 mL/min (>60); PROTEIN, TOTAL 7.8 g/dL (6.4-8.2); UREA NITROGEN 6.0 mg/dL (7-18)
[2025-05-05 08:57] VITALS: BP 120/83
--- NOTE | 2025-05-05 13:13 | EKG ---
[facility] [address] [facility] [address] [place], [place] [address] Signed Normal sinus rhythm Normal ECG When compared with ECG of 28-APR-2025 03:54, No significant change was found Confirmed by Rip Olivarez DO ([id number]) on 05/05/2025 1:13:04 PM Electronically Signed By: RIP OLIVAREZ DO 05/05/25 1313 PATIENT NAME: ADRIANNAGEOFFREYVASQUEZ Electrocardiogram DATE OF : 78 PHYSICIAN: RIP OLIVAREZ DO REPORT #: [id number] REPORT IS CONFIDENTIAL AND NOT TO BE RELEASED WITHOUT AUTHORIZATION
== END 2025-05-05 08:57 | disposition home or self-care (01) ==
LOC: ED 06:50
PROVIDERS: Family Medicine
DX: R07.89 Other chest pain (principal); F43.10 Post-traumatic stress disorder, unspecified; Z79.899 Other long term (current) drug therapy
CPT/HCPCS: 36415; 71045; 80053; 83735; 83880; 84484; 85025; 85379; 85610; 93005; 93010; 96374; 99285-25; J2405